=== PATIENT | male | born 1955 | race Caucasian/White ===

== ENCOUNTER 2020-07-28 10:44 | Emergency (ER) | payer OTHER ==
[2020-07-28] MEDS ORDERED: Nitroglycerin 0.4 MG Tab.SL SL PRN (11:08)
[2020-07-28] MEDS ORDERED: Aspirin 81 MG Tab.Chew PO ONE (11:08)
[2020-07-28] MEDS ORDERED: Sodium Chloride 0.9% 10 ML Syringe FLUSH PRN (11:08)
[2020-07-28 11:26] VITALS: PULSE 60
--- NOTE | 2020-07-28 11:32 | EDM.PDOC ---
ED HPI GENERAL MEDICAL PROBLEM - General Chief Complaint: Chest Pain Stated Complaint: CHEST PAIN Time Seen by Provider: 07/28/20 11:04 Source of Information: Reports: Patient - History of Present Illness INITIAL COMMENTS - FREE TEXT/NARRATIVE: Garo is a 64 y/o male who comes to the via POV while he was out ice fishing. HE was sitting there fishing and then he started to have midsternal chest pain t hat radiated to his back. He did not get SOB, but was slightly diaphoretic and he did get a bit nauseated. He is not sure if it was because his ice house was warm or related to the sx. He now rates the pain on arrival to the ER much less than initially at 0.5/10. He reports the pain lasted about 20 minutes. Middle Chest Pain Score (Numeric/FACES): 1 - Related Data Allergies Allergy/AdvReac Type Severity Reaction Status Date / Time No Known Allergies Allergy Verified 07/28/20 11:29 Home Meds: Home Meds Acyclovir [Zovirax] 200 mg PO BID 11/26/13 [History] Aspirin [Halfprin] 81 mg PO DAILY 11/26/13 [History] Mesalamine [Lialda] 2.4 gm PO DAILY 11/26/13 [History] Simvastatin 40 mg PO DAILY 11/26/13 [History] Metoprolol Tartrate [Lopressor] 25 mg PO Q12HR #60 tab 03/29/14 [Rx] Calcium Carbonate/Vitamin D3 [Caltrate 600 + D Soft Chew Tab] 1 each PO BID 07/28/20 [History] Chlorthalidone 25 mg PO DAILY 07/28/20 [History] ClonazePAM [KlonoPIN] 0.5 mg PO BID PRN 07/28/20 [History] Cyanocobalamin (Vitamin B-12) [B-12] 1,000 mcg PO DAILY 07/28/20 [History] Famotidine [Pepcid] 40 mg PO BEDTIME 07/28/20 [History] [place]-3/DHA/Epa/Fish Oil [[place]-3 Fish Oil 1,000 MG Sfgl] 1,000 mg PO BID 07/28/20 [History] Omeprazole Magnesium [Prilosec Otc] 40 mg PO DAILY 07/28/20 [History] Testosterone Cypionate [Depo-Testosterone] 200 mg IM ASDIRECTED 07/28/20 [History] Past Medical History Cardiovascular History: Reports: Afib, Pacemaker (Demand) Review of Systems - Review of Systems Review Of Systems: See Below Constitutional: Reports: No Symptoms Eyes: Reports: No Symptoms Ears: Reports: No Symptoms Nose: Reports: No Symptoms Mouth/Throat: Reports: No Symptoms Respiratory: Reports: No Symptoms Cardiovascular: Reports: Chest Pain GI/Abdominal: Reports: Nausea Genitourinary: Reports: No Symptoms Musculoskeletal: Reports: No Symptoms Skin: Reports: Diaphoresis (with chest pain, now resolved) Neurological: Reports: No Symptoms Psychiatric: Reports: No Symptoms ED EXAM, GENERAL - Physical Exam Exam: See Below Exam Limited By: No Limitations General Appearance: Alert, WD/WN, No Apparent Distress (Adult male) Ears: Normal External Exam, Hearing Grossly Normal Nose: Normal Inspection, Normal Mucosa Throat/Mouth: Normal Inspection, Normal Lips, Normal Voice Head: Atraumatic, Normocephalic Neck: Normal Inspection Respiratory/Chest: No Respiratory Distress, Lungs Clear, Normal Breath Sounds, Chest Non-Tender Cardiovascular: Normal Peripheral Pulses, Regular Rate, Rhythm, No Murmur GI/Abdominal: Normal Bowel Sounds, Soft, Non-Tender (Male) Exam: Deferred Rectal (Males) Exam: Deferred Back Exam: Normal Inspection, Full Range of Motion Extremities: Normal Inspection, No Pedal Edema, Normal Capillary Refill Neurological: Alert, Oriented, CN II-XII Intact, Normal Cognition, Normal Gait Psychiatric: Normal Affect, Normal Mood Skin Exam: Warm, Dry, Intact, Normal Color Lymphatic: No Adenopathy #1 Interpretation EKG Date: 07/28/20 Time: 10:40 Rhythm: NSR Rate (Beats/Min): 60 Banks: Normal P-Wave: Present QRS: Normal ST-T: Normal QT: Normal EKG Interpretation Comments: Note paced rhythm-SR Course - Vital Signs Text/Narrative:: 1104 The patient was seen by the [employer]ER. Labs, CXR, adn EKG were done. He was given ASA 81mg x4. He rated his chest pain 0.5/10 and so was given Nitro 0.4mg SL x 1, this resolved his pain completely and also brought his BP down to 115/76. 1200 Labs reviewed. CBC neg, CMP glucose-128, Troponin=<0.017, BNP=41, Mg=2.0, D Dimer=0.61. PERC Score=+1 for age. Will obtain CTA to rule out PE since PERC score is positive. Paln serial Troponin, patient pain free at this time. 1435 Serial Troponin=<0.017, no further chest pain sx. Vitals remains normal. CTA results reviewed with patient and his . Noted 5mm noncalcified nodule in the RUL. Discussed follow up to watch this. Questions answered. Patient and his were given discharge instructions and he left the ER in stable condition. Last Recorded V/S: Last Vital Signs Temp 36.4 C 07/28/20 10:50 Pulse 60 07/28/20 14:12 Resp 12 07/28/20 14:12 BP 124/84 07/28/20 14:12 Pulse Ox 95 07/28/20 14:12 - Orders/Labs/Meds Orders: Active Orders 24 hr Category Date Time Status Cardiac Monitoring [RC] . DIRECTED Care 07/28/20 11:08 Active EKG Documentation Completion [RC] STAT Care 07/28/20 11:08 Active Oxygen Therapy [RC] PRN Care 07/28/20 11:08 Active Pulse Oximetry [RC] CONTINUOUS Care 07/28/20 11:08 Active Nitroglycerin [Nitrostat] Med 07/28/20 11:08 Active 0.4 mg SL Q5M PRN Sodium Chloride 0.9% [Saline Flush] Med 07/28/20 11:08 Active 10 ml FLUSH ASDIRECTED PRN Peripheral IV Insertion Adult [OM.PC] Stat Oth 07/28/20 11:08 Ordered Saline Lock Insert [OM.PC] Stat Oth 07/28/20 11:08 Ordered Resuscitation Status Routine Resus Stat 07/28/20 11:08 Ordered Medication Orders Nitroglycerin (Nitrostat) 0.4 mg SL Q5M PRN PRN Reason: Chest Pain Stop: 07/29/20 11:09 Last Admin: 07/28/20 11:13 Dose: 0.4 mg Documented by: MACY Sodium Chloride (Saline Flush) 10 ml FLUSH ASDIRECTED PRN PRN Reason: Keep Vein Open Labs: Laboratory Tests 07/28/20 07/28/20 07/28/20 Range/Units 11:05 11:05 11:05 WBC 5.4 (4.0-10.0) x10^3/uL RBC 5.35 (4.5-6.0) x10^6/uL Hgb 16.1 D (14.0-18.0) g/dL Hct 47.0 (40.0-52.0) % MCV 87.9 (78.0-93.0) fL MCH 30.1 (26.0-32.0) pg MCHC 34.3 (32.0-36.0) g/dL RDW Coeff of Re 12.5 (10.0-15.0) % Plt Count 168 (130-400) x10^3/uL Neut % (Auto) 64.5 (50.0-80.0) % Lymph % (Auto) 21.5 L (25.0-50.0) % Mcdonald % (Auto) 10.8 (2.0-11.0) % Eos % (Auto) 2.6 (0.0-4.0) % Baso % (Auto) 0.6 (0.2-1.2) % PT (9.9-12.5) SEC INR (2.0-3.5) APTT 23.9 L (25.6-32.8) SEC D-Dimer, Quantitative 0.61 H (<=0.58) mg/LFEU Sodium 140 (136-145) mmol/L Potassium 3.9 (3.5-5.1) mmol/L Chloride 102 (98-107) mmol/L Carbon Dioxide 28 (21-32) mmol/L Anion Gap 13.9 (5-15) mmol/L BUN 12 (7-18) mg/dL Creatinine 1.0 (0.70-1.30) mg/dL Est Cr Clr Drug Dosing TNP Estimated GFR (MDRD) > 60 Glucose 128 H (74-106) mg/dL Calcium 9.1 (8.5-10.1) mg/dL Corrected Calcium 9.42 (8.5-10.1) mg/dL Magnesium 2.0 (1.8-2.4) mg/dL Total Bilirubin 0.5 (0.2-1.0) mg/dL AST 21 (15-37) U/L ALT 29 (16-63) U/L Alkaline Phosphatase 54 (46-116) U/L Troponin I < 0.017 (<=0.056) ng/mL C-Reactive Protein < 0.2 (<=0.9) mg/dL NT-Pro-B Natriuret Pep 41 (<=125) pg/mL Total Protein 7.3 (6.4-8.2) g/dL Albumin 3.6 (3.4-5.0) g/dL Globulin 3.7 Albumin/Globulin Ratio 0.97 Urine Color (YELLOW) Urine Appearance (CLEAR) Urine pH (5.0-8.0) Ur Specific [place] Urine Protein (NEGATIVE) mg/dL Urine Glucose (UA) (NEGATIVE) mg/dL Urine Ketones (NEGATIVE) mg/dL Urine Occult Blood (NEGATIVE) Urine Nitrite (NEGATIVE) Urine Bilirubin (NEGATIVE) Urine Urobilinogen (0.2) EU/dL Ur Leukocyte Esterase (NEGATIVE) 07/28/20 07/28/20 07/28/20 Range/Units 11:05 12:29 13:53 WBC (4.0-10.0) x10^3/uL RBC (4.5-6.0) x10^6/uL Hgb (14.0-18.0) g/dL Hct (40.0-52.0) % MCV (78.0-93.0) fL MCH (26.0-32.0) pg MCHC (32.0-36.0) g/dL RDW Coeff of Re (10.0-15.0) % Plt Count (130-400) x10^3/uL Neut % (Auto) (50.0-80.0) % Lymph % (Auto) (25.0-50.0) % Mcdonald % (Auto) (2.0-11.0) % Eos % (Auto) (0.0-4.0) % Baso % (Auto) (0.2-1.2) % PT 11.0 (9.9-12.5) SEC INR 1.0 L (2.0-3.5) APTT (25.6-32.8) SEC D-Dimer, Quantitative (<=0.58) mg/LFEU Sodium (136-145) mmol/L Potassium (3.5-5.1) mmol/L Chloride (98-107) mmol/L Carbon Dioxide (21-32) mmol/L Anion Gap (5-15) mmol/L BUN (7-18) mg/dL Creatinine (0.70-1.30) mg/dL Est Cr Clr Drug Dosing Estimated GFR (MDRD) Glucose (74-106) mg/dL Calcium (8.5-10.1) mg/dL Corrected Calcium (8.5-10.1) mg/dL Magnesium (1.8-2.4) mg/dL Total Bilirubin (0.2-1.0) mg/dL AST (15-37) U/L ALT (16-63) U/L Alkaline Phosphatase (46-116) U/L Troponin I < 0.017 (<=0.056) ng/mL C-Reactive Protein (<=0.9) mg/dL NT-Pro-B Natriuret Pep (<=125) pg/mL Total Protein (6.4-8.2) g/dL Albumin (3.4-5.0) g/dL Globulin Albumin/Globulin Ratio Urine Color Yellow (YELLOW) Urine Appearance Clear (CLEAR) Urine pH 7.5 (5.0-8.0) Ur Specific [place] 1.020 Urine Protein Negative (NEGATIVE) mg/dL Urine Glucose (UA) Negative (NEGATIVE) mg/dL Urine Ketones Negative (NEGATIVE) mg/dL Urine Occult Blood Negative (NEGATIVE) Urine Nitrite Negative (NEGATIVE) Urine Bilirubin Negative (NEGATIVE) Urine Urobilinogen 0.2 (0.2) EU/dL Ur Leukocyte Esterase Negative (NEGATIVE) Meds: Medications Generic Name Dose Route Start Last Admin Trade Name Freq PRN Reason Stop Dose Admin Nitroglycerin 0.4 mg 07/28/20 11:08 07/28/20 11:13 Nitrostat SL 07/29/20 11:09 0.4 mg Q5M PRN Administration Chest Pain Sodium Chloride 10 ml 07/28/20 11:08 Saline Flush FLUSH ASDIRECTED PRN Keep Vein Open Discontinued Medications Generic Name Dose Route Start Last Admin Trade Name Freq PRN Reason Stop Dose Admin Aspirin 324 mg 07/28/20 11:08 07/28/20 10:50 Aspirin PO 07/28/20 11:09 324 mg ONETIME ONE Administration Iopamidol 100 ml 07/28/20 12:25 07/28/20 12:26 Isovue-300 (61%) IVPUSH 07/28/20 12:26 100 ml ONETIME ONE Administration - Radiology Interpretation Free Text/Narrative:: XR Chest 1V=No acute findings, note pacer present (See final report) CT CTA= no evidence of pulmomary embolism or active pneumonia, note 5 mm noncalcified RUL pulmnary nodule. (See final report) Departure - Departure Time of Disposition: 14:29 Disposition: Home, Self-Care 01 Condition: Good Clinical Impression: Chest pain, rule out acute myocardial infarction, Pulmonary nodule - Discharge Information *PRESCRIPTION DRUG MONITORING PROGRAM REVIEWED*: Not Applicable *COPY OF PRESCRIPTION DRUG MONITORING REPORT IN PATIENT DENNYS: Not Applicable Instructions: Nonspecific Chest Pain, Adult, Pulmonary Nodule Referrals: Natalie Whittaker DO [Primary Care Provider] - Forms: ED Department Discharge Sepsis Event Note (ED) - Evaluation Sepsis Screening Result: No Definite Risk - Focused Exam Vital Signs: Vital Signs Temp Pulse Resp BP BP Pulse Ox 07/28/20 14:12 60 12 124/84 95 07/28/20 13:16 60 15 120/81 95 07/28/20 11:57 60 18 111/79 95 07/28/20 11:13 149/95 H 07/28/20 10:50 36.4 C 60 12 149/95 H 95 - My Orders Last 24 Hours: My Active Orders 07/28/20 11:08 Cardiac Monitoring [RC] . DIRECTED EKG Documentation Completion [RC] STAT Oxygen Therapy [RC] PRN Pulse Oximetry [RC] CONTINUOUS Nitroglycerin [Nitrostat] 0.4 mg SL Q5M PRN Sodium Chloride 0.9% [Saline Flush] 10 ml FLUSH ASDIRECTED PRN Peripheral IV Insertion Adult [OM.PC] Stat Saline Lock Insert [OM.PC] Stat Resuscitation Status Routine - Assessment/Plan Last 24 Hours: My Active Orders 07/28/20 11:08 Cardiac Monitoring [RC] . DIRECTED EKG Documentation Completion [RC] STAT Oxygen Therapy [RC] PRN Pulse Oximetry [RC] CONTINUOUS Nitroglycerin [Nitrostat] 0.4 mg SL Q5M PRN Sodium Chloride 0.9% [Saline Flush] 10 ml FLUSH ASDIRECTED PRN Peripheral IV Insertion Adult [OM.PC] Stat Saline Lock Insert [OM.PC] Stat Resuscitation Status Routine Assessment:: 1)Chest Pain, R/O Myocardial Infarction 2)Pulmonary [id number] finding Plan: -Monitor for nay further chest pain and report if any recurrence -Continue Blood Pressure meds that were recently started -Your D-Dimer test was elevated today and a Chest CT was done to rule out any pulmonary embolus. A pulmonary nodule was noted on the CT and it is recommended that you have a follow up exam in 6 months. -Follow up with Dr Natalie Whittaker in the next 1-2 weeks for recheck from this ER visit -Return to the ER for any concerns
[2020-07-28 11:40] LABS: PTT,PARTIAL THROMBOPLSTIN TIME 23.9 SEC (25.6-32.8)
[2020-07-28 11:41] LABS: CHLORIDE,CL 102 mmol/L (98-107); SODIUM,NA 140 mmol/L (136-145)
[2020-07-28 11:43] LABS: ANION GAP 13.9 mmol/L (5-15)
[2020-07-28] MEDS ORDERED: Iopamidol 612 MG/ML 100 ML Bottle IVPUSH ONE (12:25)
--- NOTE | 2020-07-28 12:52 | CT ---
[id number] CT/CTA Chest EXAM: CT ANGIOGRAM CHEST INDICATION: POSITIVE D-DIMER, PERC SCORE = 1+. COMPARISON: None. DISCUSSION: The pulmonary arteries are normal in appearance with no emboli identified. Dependent atelectasis at the lung bases bilaterally. Otherwise, the lungs are clear with no infiltrate or mass identified.No pleural or pericardial effusion. 5 mm noncalcified right upper lobe subpleural nodule (series 4 image 26). Normal heart size. No mediastinal, hilar or axillary lymphadenopathy. Left chest wall cardiac conduction device. The imaged upper abdomen and osseous structures are unremarkable. IMPRESSION: 1. No evidence of acute pulmonary embolism. 2. No evidence of active pneumonia. 3. 5 mm noncalcified subpleural right upper lobe nodule. Repeat chest CT without contrast in 6 months is recommended. Jt Navarro DO 07/28/20 0634 Thank you for allowing us to participate in the care of your patient.
--- NOTE | 2020-07-28 12:53 | CR ---
[id number] RAD/RAD Chest PA or AP 1V EXAM: RAD Chest PA or AP 1V INDICATION: CHEST PAIN. COMPARISON: November 26, 2013. DISCUSSION: Left chest wall cardiac conduction device. Cardiomediastinal silhouette is normal in size and contour. No infiltrate, effusion, pneumothorax, or edema. Pulmonary hyperinflation. IMPRESSION: No acute cardiopulmonary abnormality. Jt Navarro DO 07/28/20 [id number] Thank you for allowing us to participate in the care of your patient.
[2020-07-28 14:13] VITALS: BP 124/84
== END 2020-07-28 14:38 | disposition home or self-care (01) ==
LOC: VM.ED 10:44
DX: R07.2 Precordial pain (principal); R91.1 Solitary pulmonary nodule; I48.91 Unspecified atrial fibrillation; Z79.899 Other long term (current) drug therapy
CPT/HCPCS: 36415; 71045; 71275; 80053; 81003; 83735; 83880; 84484; 85025; 85379; 85610; 85730; 86140; 93005; 93010; 99284; 99285-25; A9270-GY; Q9967

== ENCOUNTER 2022-03-12 09:56 | Emergency (ER) | payer OTHER, MEDICARE ==
[2022-03-12 10:38] VITALS: BP 142/76; PULSE 66
[2022-03-12 11:24] LABS: CHLORIDE,CL 101 mmol/L (98-107); SODIUM,NA 139 mmol/L (136-145)
[2022-03-12 11:25] LABS: ANION GAP 8.8 mmol/L (5-15); ESTIMATED GFR 98 mL/min (>=60)
== END 2022-03-12 11:37 | disposition home or self-care (01) ==
LOC: VM.ED 09:56
DX: K92.1 Melena (principal); I48.91 Unspecified atrial fibrillation; K21.9 Gastro-esophageal reflux disease without esophagitis; M19.90 Unspecified osteoarthritis, unspecified site; Z95.0 Presence of cardiac pacemaker; Z79.82 Long term (current) use of aspirin; Z79.899 Other long term (current) drug therapy
CPT/HCPCS: 36415; 80053; 85025; 86140; 99283

== ENCOUNTER 2025-04-02 11:08 | Emergency (ER) | payer MEDICARE, OTHER ==
[2025-04-02 11:41] VITALS: BP 139/84; PULSE 65
== END 2025-04-02 11:40 | disposition home or self-care (01) ==
LOC: VM.ED 11:08
DX: M77.11 Lateral epicondylitis, right elbow (principal); I10 Essential (primary) hypertension; K21.9 Gastro-esophageal reflux disease without esophagitis; I48.91 Unspecified atrial fibrillation; Z95.0 Presence of cardiac pacemaker; Z79.82 Long term (current) use of aspirin; Z79.899 Other long term (current) drug therapy
CPT/HCPCS: 99283